=== PATIENT | female | born 1980 | race Hispanic/Latino ===

== ENCOUNTER 2019-05-17 18:04 | Outpatient (CLI) | payer OTHER ==
--- NOTE | 2019-05-17 18:25 | RAD ---
XR Chest Pa Lat STANDARD History: Chest pressure Comparison: None. Findings: Lungs are clear. No pneumothorax. No effusion. No acute osseous abnormality. Cardiac silhouette and mediastinal contours are within normal limits. Impression: No acute intrathoracic abnormality.
== END 2019-05-17 18:05 | disposition home or self-care (01) ==
LOC: SCSRAD 18:04
PROVIDERS: ATTEND Family Medicine
DX: R07.89 Other chest pain (principal)
CPT/HCPCS: 71046